=== PATIENT | male | born 1965 | race African-American/Black ===

== ENCOUNTER 2017-06-17 17:12 | Emergency (ER) | payer SELFPAY ==
[2017-06-17] MEDS ORDERED: Ketorolac Tromethamine 30 MG/ML VIAL ONE (18:43)
[2017-06-17] MEDS ORDERED: Acetaminophen 500 MG TAB ONE (18:43)
== END 2017-06-17 19:10 | disposition home or self-care (01) ==
LOC: ERS 17:12
DX: B34.9 Viral infection, unspecified (principal); F17.210 Nicotine dependence, cigarettes, uncomplicated
CPT/HCPCS: 96372; J1885

== ENCOUNTER 2017-06-24 23:13 | Emergency (ER) | payer SELFPAY ==
[~2017-06-24 23:13] MED LIST: ISOVUE-370 76%-LOCM 1 ML ONE
[2017-06-25] MEDS ORDERED: Clindamycin/D5W 900 mg/50 ml Premix Bag ONE (00:04)
[2017-06-25 00:09] LABS: #Eosinphils 0.1 thou/uL (0.0-0.7); #Lymphocytes 1.8 thou/uL (1.20-3.40); #Monocytes 1.3 thou/uL (0.11-0.59); #Neutrophils 7.3 thou/uL (1.40-6.50); %Basophils 0.2 % (0.0-1.0); %Eosinophils 0.7 % (0.0-10.0); %Lymphocytes 16.8 % (21.0-51.0); %Monocytes 12.1 % (0.0-10.0); %Neutrophils 70.2 % (42.0-75.0); Hemoglobin 13.3 g/dL (14.0-18.0); Mean Corpuscular HGB CONC 32.8 g/dL (32.0-36.0); Mean Corpuscular Hemoglobin 30.7 pg (27.0-31.0); Mean Corpuscular Volume 93.7 fl (80.0-94.0); Mean Platelet Volume 7.1 fL (7.4-10.4); Platelet Count 276 thou/uL (130-400); RBC Distribution Width 11.8 % (11.5-14.5); Red Blood Cell (RBC) Count 4.33 mill/uL (4.70-6.10); White Blood Cell (WBC) Count 10.4 thou/uL (4.8-10.8)
[2017-06-25 00:29] LABS: Sodium 142 mmol/L (136-145)
[2017-06-25 00:30] LABS: Anion Gap 12 mmol/L (10-20); BUN (Urea Nitrogen) 14 mg/dL (8.4-25.7); Calc. Creatinine Clearance 0 mL/min (70-130); Calcium 9.5 mg/dL (7.8-10.44); Carbon Dioxide 33 mmol/L (22-29); Chloride 100 mmol/L (98-107); Estimated GFR-MDRD 80; Glucose 122 mg/dL (70-105)
--- NOTE | 2017-06-25 08:01 | CT ---
PRELIMINARY REPORT/[facility]/EMERGENCY AFTER HOURS PROCEDURE: EXAM: CT Maxillofacial With Intravenous Contrast EXAM DATE/TIME: Exam ordered 06/25/2017 12:07 AM CLINICAL HISTORY: 51 years old, male; Pain; Maxilla pain; Patient HX: Right side pain, facial swelling, possible absces s TECHNIQUE: Axial computed tomography images of the face with intravenous contrast. CONTRAST: 100 mL of ISOVUE administered intravenously. COMPARISON: No relevant prior studies available. FINDINGS: Bones/joints: No acute fracture. Soft tissues: There is RIGHT facial soft tissue swelling compatible with cellulitis in the appropriat e clinical setting. No rim-enhancing drainable collection is identified. Orbits: Normal. Sinuses: Normal. No air-fluid levels. Other findings: There is dentigerous disease. IMPRESSION: RIGHT facial cellulitis without evidence of abscess. Thank you for allowing us to participate in the care of your patient. Dictated and Authenticated by: Arash Mosley MD 06/25/2017 12:55 AM Central Time ([place] & [place]) FINAL REPORT BY DR. YANES EMERGENCY AFTER HOURS STUDY CT MAXILLOFACIAL WITH CONTRAST: Date: 06/25/17 Time: 0010 hours HISTORY: 51-year-old male with right premaxillary facial pain and swelling. Possible abscess. Dr. Yanes discussed the findings and recommendation for referral to dentist by telephone with ER charge nurse, Hilda Loaiza, at 0740 hours on 06/25/17. FINDINGS: There is a tiny osseous defect on the order of 2-3 mm in size, at the anterior cortical surface of th e right maxillary alveolar ridge, involving the root of the right upper canine tooth. Anterior to thi s and surrounding this, there is a tiny lucency approximately 1 x 3 mm in size, representing a tiny d ental abscess. This is surrounded by a halo of enhancing granulation tissue. The right premaxillary soft tissues are diffusely edematous and swollen. 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 T here is absence of the most of the mandibular molars. 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 There is moderate mucosal thickening and mucus retention cysts in the maxillary sinuses bilaterally. There is mild and moderate mucosal thickening in the ethmoid air cells. Sphenoid sinus is clear. 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 Although the dental abscess is tiny, it may require different management from nonodontogenic facial c ellulitis, requiring visitation to dentist or appropriate dental subspecialist. This is in disagreement with the preliminary report by Gonzalez. IMPRESSION: Tiny dental abscess involving right upper tooth, with associated secondary right facial cellulitis. POS: OFF
== END 2017-06-25 01:51 | disposition home or self-care (01) ==
LOC: ERS 23:13
DX: L03.211 Cellulitis of face (principal); F17.210 Nicotine dependence, cigarettes, uncomplicated
CPT/HCPCS: 70487; 80048; 85025; 96365; J3490

== ENCOUNTER 2017-08-26 22:12 | Emergency (ER) | payer SELFPAY ==
[2017-08-26 23:22] LABS: Bilirubin Negative (Negative); Blood, Urine Negative (Negative); Clarity CLEAR (Clear); Glucose, Urine (Dipstick) Negative (Negative); Leukocyte Negative (Negative); Nitrite Negative (Negative); Protein, Urine (Dipstick) Negative (Neg-Trace); Specific Gravity, Urine 1.014 (1.002-1.036); Urobilinogen 0.2 mg/dL (0.2-1.0); pH, Urine 6.5 (5.0-9.0)
[2017-08-27] MEDS ORDERED: Ketorolac Tromethamine 60 MG/2 ML VIAL ONE (00:29)
--- NOTE | 2017-08-28 19:54 | EKG ---
Test Reason : Blood Pressure : / mmHG Vent. Rate : 037 BPM Atrial Rate : 037 BPM P-R Int : 152 ms QRS Dur : 080 ms QT Int : 516 ms P-R-T Axes : 041 -04 012 degrees QTc Int : 405 ms Marked sinus bradycardia Moderate voltage criteria for LVH, may be normal variant Inferior infarct , age undetermined Abnormal ECG Confirmed by IWONA ERAZO D.O. ([id number]), photo editor TMIMY VILLASENOR ([id number]) on 08/28/2017 7:54:23 PM Referred By: Confirmed By:IWONA ERAZO D.O.
== END 2017-08-27 00:57 | disposition home or self-care (01) ==
LOC: ERS 22:12
DX: S39.011A Strain of muscle, fascia and tendon of abdomen, initial encounter (principal); F17.210 Nicotine dependence, cigarettes, uncomplicated; X50.0XXA Overexertion from strenuous movement or load, initial encounter
CPT/HCPCS: 81003; 93005; 96372; J1885

== ENCOUNTER 2017-10-03 03:34 | Emergency (ER) | payer SELFPAY ==
[2017-10-03] MEDS ORDERED: Ketorolac Tromethamine 60 MG/2 ML VIAL ONE (05:39)
--- NOTE | 2017-10-03 11:00 | RAD ---
LEFT FOOT 3 VIEWS: History Pain. COMPARISON: None. FINDINGS: Lisfranc alignment is maintained. Joint space is preserved. Hallux valgus deformity with degenerati ve change in the 1st metatarsophalangeal joint space is noted. No fractures. IMPRESSION: Degenerative change in the 1st metatarsophalangeal joint. POS: GIACOMO
== END 2017-10-03 06:19 | disposition home or self-care (01) ==
LOC: ERS 03:34
DX: M79.672 Pain in left foot (principal); Z71.6 Tobacco abuse counseling; F17.210 Nicotine dependence, cigarettes, uncomplicated
CPT/HCPCS: 96372; 99406; J1885

== ENCOUNTER 2020-09-19 00:18 | Emergency (ER) | payer SELFPAY ==
[2020-09-19] MEDS ORDERED: Lidocaine 1% (PF) 30 ML VIAL ONE (01:12)
== END 2020-09-19 02:27 | disposition home or self-care (01) ==
LOC: ERS 00:18
DX: L03.012 Cellulitis of left finger (principal); F17.210 Nicotine dependence, cigarettes, uncomplicated; N40.0 Benign prostatic hyperplasia without lower urinary tract symptoms
CPT/HCPCS: 26011; J2001